=== PATIENT | female | born 1995 | race Caucasian/White ===

== ENCOUNTER 2017-04-04 08:40 | Inpatient (IN) | payer BC, OTHER ==
[2017-04-04] VITALS (103 sets, daily range): BP systolic 105–150; BP diastolic 53–135; PULSE 57–97; RESP 12–20; TEMP 97.9–98.5
[~2017-04-04 08:40] MED LIST: PREN1CHW7 PO
[2017-04-04] MEDS ORDERED: LACTATED RINGER'S 1000 ML INJ 1,000 ML IV PRN (09:19)
[2017-04-04] MEDS ORDERED: OXYTOCIN 30 UNITS-500ML PREMIX 500 ML IV ONE (09:30)
[2017-04-04] MEDS ORDERED: SODIUM CHLORID 0.9% 500 ML INJ 500 ML IV PRN (09:30)
[2017-04-04] MEDS ORDERED: MINERAL OIL 10 ML VIAL TOPICAL PRN (09:30)
[2017-04-04] MEDS ORDERED: LIDOCAINE HCL 1% 50 ML VIAL I-DERMAL PRN (09:30)
[2017-04-04] MEDS ORDERED: CITRIC ACID-SODIUM CITRATE LIQ 30 ML UDC PO SCH (09:30)
[2017-04-04] MEDS ORDERED: ONDANSETRON HCL 4 MG/2 ML VIAL IV PUSH PRN (09:30)
[2017-04-04] MEDS ORDERED: LIDOCAINE HCL 1% 50 ML VIAL INFIL PRN (09:30)
[2017-04-04] MEDS ORDERED: SODIUM CHLOR 0.9% 1000 ML INJ 1,000 ML IV PRN (09:39)
--- NOTE | 2017-04-04 09:47 | PD ---
HPI Chief Complaint painful contractions Travel History International Travel<30 Days: No Contact w/Intl Traveler<30Days: No Known Affected Area: No History of Present Illness HPI Patient is a 21 y/o @40 wks who presents for painful contractions starting this AM. Denies significant fluid leakage or vaginal bleeding. Endorses movement. [facility] Last appointment on Sunday, she was 2 cm dilated and 90% effaced. No complications or abnormalities in course. Is GBS neg, no STD hx. History Past Medical History Medical History: Denies Significant Hx Past Surgical History Surgical History: No Previous Surgery Family History Family History: Negative Social History Alcohol Use: No Tobacco Use: No Substance Abuse: No Allergies-Medications (Allergen,Severity, Reaction): Coded Allergies: Sulfa (Sulfonamide Antibiotics) (Unverified Allergy, Mild, hives, 04/02/17) penicillin G (Unverified Allergy, Mild, hives, 04/02/17) Home Meds Active Scripts Vit W/ Ferric Phospha (Vitafol Gummies 3.33-0.333-34.8 mg) 1 Chw Chw, 3 TAB PO DAILY, #90 BOTTLE 11 Refills Prov:Alina Fernandez [facility] 09/04/16 Vit W/ Fe Polysacch C (Vitafol Ultra 29-0.6-0.4-200 mg) 1 Cap Cap Prov:Edilma Gutierres CNM [facility] 09/04/16 Physical Exam Narrative GENERAL: Well-nourished, well-developed patient. SKIN: Warm and dry. HEAD: Normocephalic and atraumatic. EYES: No scleral icterus. No injection or drainage. ENT: No nasal drainage noted. Mucous membranes pink. Airway patent. NECK: Supple, trachea midline. No JVD. CARDIOVASCULAR: Regular rate and rhythm without murmurs, gallops, or rubs. RESPIRATORY: Breath sounds equal bilaterally. No accessory muscle use. BREASTS: Bilateral exam showed no masses , no retractions, no nipple discharge. ABDOMEN/GI: Abdomen soft, non-tender, bowel sounds present, no rebound, no guarding Gravid to 40 weeks size GENITOURINARY: External Genitalia: intact and normal in appearance Cervix: midline Dilatation: 3 Effacement: 90 Station: 0 Membranes: [intact] Uterine Contractions: yes, 2-3 min apart FHT's: Category: 1 Baseline: 115 Reactive: yes Variability: yes Decels: none EXTREMITIES: No cyanosis or edema. NEUROLOGICAL: Awake and alert. Motor and sensory grossly within normal limits. Data Data Orders Orders Admit To Inpatient (04/04/17 ) Code Status (04/04/17 09:19) Vital Signs (Adult) .Per protocol (04/04/17:19) Activity Oob Ad Lexy (04/04/17:19) Heart (04/04/17:19) Amnioinfusion (04/04/17:19) Urinary Catheter Management .ONCE (04/04/17:19) Diet Liquid (04/04/17 Breakfast) Lactated Ringer's 1000 Ml Inj (Lr 1000 M (04/04/17 09:19) Lactated Ringer's 1000 Ml Inj (Lr 1000 M (04/04/17 09:19) Sodium Chlorid 0.9% 500 Ml Inj (Ns 500 M (04/04/17 09:30) Sodium Chlor 0.9% 1000 Ml Inj (Ns 1000 M (04/04/17 09:39) Lidocaine 1% Inj (50 Ml) (Xylocaine 1% I (04/04/17 09:30) Citric Acid-Sodium Citrate Liq (Bicitra (04/04/17 09:30) Ondansetron Inj (Zofran Inj) (04/04/17 09:30) Fentanyl Inj (Fentanyl Inj) (04/04/17 09:30) Fentanyl Inj (Fentanyl Inj) (04/04/17 09:30) Complete Blood Count With Diff (04/04/17:19) Hold Clot (04/04/17:19) Abo/Rh Blood Type (04/04/17:19) Urinalysis - C+S If Indicated (04/04/17:19) Type And Screen (04/04/17:19) Resp Oxygen Non Rebreathe Mask (04/04/17 ) ^ Epidural / Intrathecal Infus (04/04/17:19) Oxytocin 30 Units-500ml Premix (Pitocin (04/04/17 09:30) Lidocaine 1% Inj (50 Ml) (Xylocaine 1% I (04/04/17 09:30) Light Mineral Oil (Muri-Lube Oil) (04/04/17 09:30) Inpatient Certification (04/04/17 ) Ob (2e) Additional Admit Info (04/04/17 09:23) MDM Interpretation(s) @40 weeks who is GBS - admitted for labor w/regular, frequent contractions. Category 1 tracing reassuring, dilated at 3 cm, 90 % effaced. - con't monitor - plan to recheck q 2-[address] Myers Diagnosis Diagnosis: Primary Impression: Additional Impression: Normal labor Brittany Kahn MD R1 Apr 04, 2017 09:47
--- NOTE | 2017-04-04 09:50 | HHI.HP ---
HPI Chief Complaint Painful contractions Travel History International Travel<30 Days: No Contact w/Intl Traveler<30Days: No Known Affected Area: No History of Present Illness HPI Patient is a 21 y/o @40 wks who presents for painful contractions starting this AM. Denies significant fluid leakage or vaginal bleeding. Endorses movement. [facility] with [facility]. Last appointment on Sunday, she was 2 cm dilated and 90% effaced. No complications or abnormalities in course. Is GBS neg, no STD hx. History Past Medical History Medical History: Denies Significant Hx Past Surgical History Surgical History: No Previous Surgery Family History Family History: Negative Social History Alcohol Use: No Tobacco Use: No Substance Abuse: No Allergies-Medications (Allergen,Severity, Reaction): Coded Allergies: Sulfa (Sulfonamide Antibiotics) (Unverified Allergy, Mild, hives, 04/02/17) penicillin G (Unverified Allergy, Mild, hives, 04/02/17) Home Meds Active Scripts Vit W/ Ferric Phospha (Vitafol Gummies 3.33-0.333-34.8 mg) 1 Chw Chw, 3 TAB PO DAILY, #90 BOTTLE 11 Refills Prov:Alina Fernandez [facility] 09/04/16 Vit W/ Fe Polysacch C (Vitafol Ultra 29-0.6-0.4-200 mg) 1 Cap Cap Prov:Edilma Gutierres CNM [facility] 09/04/16 Physical Exam Narrative GENERAL: Well-nourished, well-developed patient. SKIN: Warm and dry. HEAD: Normocephalic and atraumatic. EYES: No scleral icterus. No injection or drainage. ENT: No nasal drainage noted. Mucous membranes pink. Airway patent. NECK: Supple, trachea midline. No JVD. CARDIOVASCULAR: Regular rate and rhythm without murmurs, gallops, or rubs. RESPIRATORY: Breath sounds equal bilaterally. No accessory muscle use. BREASTS: Bilateral exam showed no masses , no retractions, no nipple discharge. ABDOMEN/GI: Abdomen soft, non-tender, bowel sounds present, no rebound, no guarding Gravid to 40 weeks size GENITOURINARY: External Genitalia: intact and normal in appearance Cervix: midline Dilatation: 3 Effacement: 90 Station: 0 Membranes: [intact] Uterine Contractions: yes, 2-3 min apart FHT's: Category: 1 Baseline: 115 Reactive: yes Variability: yes Decels: none EXTREMITIES: No cyanosis or edema. NEUROLOGICAL: Awake and alert. Motor and sensory grossly within normal limits. Caprini VTE Risk Assessment Caprini VTE Risk Assessment: No/Low Risk (score <= 1) Caprini Risk Assessment Model Point Value = 1 Point Value = 2 Point Value = 3 Point Value = 5 Age 41-60 Minor surgery BMI > 25 kg/m2 Swollen legs Varicose veins or History of unexplained or recurrent spontaneous Oral contraceptives or hormone replacement Sepsis (< 1 month) Serious lung disease, including pneumonia (< 1 month) Abnormal pulmonary function Acute myocardial infarction Congestive heart failure (< 1 month) History of inflammatory bowel disease Medical patient at bed rest Age 61-74 Arthroscopic surgery Major open surgery (> 45 min) Laparoscopic surgery (> 45 min) Malignancy Confined to bed (> 72 hours) Immobilizing plaster cast Central venous access Age >= 75 History of VTE Family history of VTE Factor V Leiden Prothrombin 25430P Lupus anticoagulant Anticardiolipin antibodies Elevated serum homocysteine Heparin-induced thrombocytopenia Other congenital or acquired thrombophilia Stroke (< 1 month) Elective arthroplasty Hip, pelvis, or leg fracture Acute spinal cord injury (< 1 month) Prophylaxis Regimen Total Risk Factor Score Risk Level Prophylaxis Regimen 0-1 Low Early ambulation 2 Moderate Order ONE of the following: *Sequential Compression Device (SCD) *Heparin 5000 units SQ BID 3-4 Higher Order ONE of the following medications: *Heparin 5000 units SQ TID *Enoxaparin/Lovenox 40 mg SQ daily (WT < 150 kg, CrCl > 30 mL/min) *Enoxaparin/Lovenox 30 mg SQ daily (WT < 150 kg, CrCl > 10-29 mL/min) *Enoxaparin/Lovenox 30 mg SQ BID (WT < 150 kg, CrCl > 30 mL/min) AND/OR *Sequential Compression Device (SCD) 5 or more Highest Order ONE of the following medications: *Heparin 5000 units SQ TID (Preferred with Epidurals) *Enoxaparin/Lovenox 40 mg SQ daily (WT < 150 kg, CrCl > 30 mL/min) *Enoxaparin/Lovenox 30 mg SQ daily (WT < 150 kg, CrCl > 10-29 mL/min) *Enoxaparin/Lovenox 30 mg SQ BID (WT < 150 kg, CrCl > 30 mL/min) AND *Sequential Compression Device (SCD) Data Data Vital Signs Reviewed: Yes Orders Orders Admit To Inpatient (04/04/17 ) Code Status (04/04/17 09:19) Vital Signs (Adult) .Per protocol (04/04/17 09:19) Activity Oob Ad Lexy (04/04/17:19) Heart (04/04/17:19) Amnioinfusion (04/04/17:19) Urinary Catheter Management .ONCE (04/04/17:19) Diet Liquid (04/04/17 Breakfast) Lactated Ringer's 1000 Ml Inj (Lr 1000 M (04/04/17 09:19) Lactated Ringer's 1000 Ml Inj (Lr 1000 M (04/04/17 09:19) Sodium Chlorid 0.9% 500 Ml Inj (Ns 500 M (04/04/17 09:30) Sodium Chlor 0.9% 1000 Ml Inj (Ns 1000 M (04/04/17 09:39) Lidocaine 1% Inj (50 Ml) (Xylocaine 1% I (04/04/17 09:30) Citric Acid-Sodium Citrate Liq (Bicitra (04/04/17 09:30) Ondansetron Inj (Zofran Inj) (04/04/17 09:30) Fentanyl Inj (Fentanyl Inj) (04/04/17 09:30) Fentanyl Inj (Fentanyl Inj) (04/04/17 09:30) Complete Blood Count With Diff (04/04/17:19) Hold Clot (04/04/17:19) Abo/Rh Blood Type (04/04/17 09:19) Urinalysis - C+S If Indicated (04/04/17 09:19) Type And Screen (04/04/17 09:19) Resp Oxygen Non Rebreathe Mask (04/04/17 ) ^ Epidural / Intrathecal Infus (04/04/17:19) Oxytocin 30 Units-500ml Premix (Pitocin (04/04/17 09:30) Lidocaine 1% Inj (50 Ml) (Xylocaine 1% I (04/04/17 09:30) Light Mineral Oil (Muri-Lube Oil) (04/04/17 09:30) Inpatient Certification (04/04/17 ) Ob (2e) Additional Admit Info (04/04/17 09:23) Group B Strep: Negative Assessment/Plan Assessment and Plan @40 weeks who is GBS - admitted for labor w/regular, frequent contractions. Category 1 tracing reassuring, dilated at 3 cm, 90 % effaced. - con't monitor - plan to recheck q 2-[address] Louis Kahn,Brittany Dietz MD R1 Apr 04, 2017 09:50
[2017-04-04] MEDS: LACTATED RINGER'S 1000 ML INJ 1,000 ML IV SCH ×4 (10:23→19:24)
[2017-04-04 10:25] LABS: AUTOMATED NEUTROPHIL # 9.7 TH/MM3 (1.8-7.7); BASOPHIL % 0.2 % (0.0-2.0); EOSINOPHIL % 0.2 % (0.0-4.0); HEMATOCRIT 36.2 % (35.0-46.0); HEMO FLAGS DIFF FINAL; LYMPH % 15.5 % (9.0-44.0); LYMPHOCYTE # 1.9 TH/MM3 (1.0-4.8); MEAN CELL VOLUME 96.2 FL (80.0-100.0); MEAN CORPUSCULAR HEMOGLOBIN 32.9 PG (27.0-34.0); MEAN CORPUSCULAR HGB CONC 34.2 % (32.0-36.0); MONO % 6.5 % (0.0-8.0); NEUT % 77.6 % (16.0-70.0); PLATELET COUNT 248 TH/MM3 (150-450); RED BLOOD COUNT 3.77 MIL/MM3 (4.00-5.30); RED CELL DISTRIBUTION WIDTH 13.1 % (11.6-17.2); WHITE BLOOD COUNT 12.5 TH/MM3 (4.0-11.0)
[2017-04-04 10:36] LABS: BACTERIA, URINE RARE /hpf; BLOOD, URINE NEG (NEG); GLUCOSE,URINE NEG (NEG); KETONE, URINE NEG (NEG); NITRITE,URINE NEG (NEG); SQUAMOUS EPITHELIAL CELL URINE 7 /hpf (0-5); URINE COLOR LIGHT-YELLOW (YELLW/STRAW)
[2017-04-04 10:37] LABS: COMMENT (UR) CULTURE INDICATED; CULTURE IF INDICATED CULTURE INDICATED
[2017-04-04] MEDS ORDERED: fentaNYL 2MCG-BUPIV 0.125% INJ 100 ML ONE (12:47)
[2017-04-04] MEDS ORDERED: ePHEDrine/NS 25 MG/5 ML SYR ONE (13:27)
[2017-04-04] MEDS ORDERED: fentaNYL 2MCG-BUPIV 0.125% 100 ML EPIDURAL SCH (15:30)
[2017-04-04] MEDS ORDERED: DO NOT ADMINISTER ANTICOAGULANTS PRN (15:30)
[2017-04-04] MEDS ORDERED: NO SYSTEM NARCOTICS PRN (15:30)
[2017-04-04] MEDS ORDERED: ePHEDrine/NS 25 MG/5 ML SYR IV PUSH PRN (15:30)
[2017-04-04] MEDS ORDERED: OXYTOCIN 30 UNITS-500ML PREMIX 500 ML ONE (19:19)
[2017-04-04 21:00] LABS: BLOOD GAS BASE EXCESS -3.9 mmol/L (-2-2); BLOOD GAS O2 HGB SATURATION 35 % (90-100); CORD BLOOD GAS HCO3 22 mmol/L (21-29); CORD BLOOD GAS PCO2 50 mmHG (34-78); CORD BLOOD GAS PH 7.26 (7.14-7.42); CORD BLOOD GAS PO2 21 mmHG (3.0-40.0); DRAW SITE CORD BLOOD; STAT YES
--- NOTE | 2017-04-04 21:01 | PD.OB.DELI ---
Weeks gestation: 40 Gest age assessed date: Apr 04, 2017 Gest age assessed time: 20:00 Pt started active labor?: Yes Medical induction of labor?: No Artificial rupture of membrane: No Anesthesia: Epidural Episiotomy: None Vaginal Delivery: Normal Presentation: Occiput anterior Nuchal Cord: x1 Delayed cord clamping (45 sec): No : Male Delivery date: Apr 04, 2017 Delivery time: 20:39 One Minute : 7 Five Minute : 9 Weight: 3600 grams Placenta: Spontaneous delivery, Intact Laceration: No lacerations Estimated blood loss: < 250 cc Additional Information 21 y/o now delivered @ 40 wks gestation via over an intact perineum. Apgars 7/9 at 1/5 minutes respectively. Placenta delivered spontaneously and intact. weight 3600 grams. No lacerations. EBL < 250 cc. (Ananda Carty MD R2) Additional Information Presented in early active labor. FHR reassuring with low baseline. Uncomplicated . Placenta spontaneous and intact, grossly normal. (Katie Mendoza MD) Ananda Carty MD R2 Apr 04, 2017 9:01 pm Katie Mendoza MD Apr 04, 2017 9:20 pm
[2017-04-04] MEDS ORDERED: SODIUM CHLORIDE 0.9% FLUSH 10 ML FLUSH IV FLUSH PRN (21:15)
[2017-04-04] MEDS ORDERED: OXYTOCIN 30 UNITS-500ML PREMIX 500 ML IV SCH (21:15)
[2017-04-04] MEDS ORDERED: ACETAMINOPHEN 325 MG TAB PO PRN (21:15)
[2017-04-04] MEDS ORDERED: DOCUSATE SODIUM 50 MG/SENNA 8.6 MG TAB PO PRN (21:15)
[2017-04-04] MEDS ORDERED: ALUMINUM/MAGNESIUM/SIMETH 30 ML CUP PO PRN (21:15)
[2017-04-04] MEDS ORDERED: BENZOCAINE 20% TOPICAL SPRAY 60 ML CAN TOPICAL PRN (21:15)
[2017-04-04] MEDS ORDERED: ONDANSETRON ODT 4 MG TAB PO PRN (21:15)
[2017-04-04] MEDS ORDERED: WITCH HAZEL 50%/GLYCERIN 12.5% 40 PAD JAR TOPICAL PRN (21:15)
[2017-04-04] MEDS ORDERED: oxyCODONE/ACETAMINOPHEN 5 MG/325 MG TAB PO PRN ×2 (21:15)
[2017-04-04] MEDS ORDERED: ZOLPIDEM TARTRATE 5 MG TAB PO PRN (21:15)
[2017-04-04] MEDS ORDERED: SODIUM CHLORIDE 0.9% FLUSH 10 ML FLUSH IV FLUSH SCH (21:15)
[2017-04-04] MEDS: IBUPROFEN 600 MG TAB PO PRN (21:20)
[2017-04-04] MEDS ORDERED: MEASLES, MUMPS, RUBELLA VACCINE 0.5 ML VIAL SQ ONE (22:00)
[2017-04-04] MEDS ORDERED: DIPHTH/TETANUS/ACEL PERTUSSIS (BOOSTER) 0.5 ML VIAL/PFS IM ONE (22:00)
[2017-04-05 00:30] VITALS: BP 117/55; PULSE 64; RESP 18; TEMP 97.9
--- NOTE | 2017-04-05 08:55 | HHI.OB ---
Subjective Post Day: 1 Remarks minimal cramping. well. lochia minimal. ambulating and voiding ok. (Katie Mendoza MD) Objective Vitals/I&O Vital Signs Date Time Temp Pulse Resp B/P (MAP) Pulse Ox O2 Delivery O2 Flow Rate FiO2 04/05/17 00:30 97.9 64 18 117/55 (75) 04/04/17 23:15 18 04/04/17 22:46 70 129/77 (94) 04/04/17 22:45 18 04/04/17 22:30 63 113/80 (91) 04/04/17 22:15 66 124/64 (84) 04/04/17 22:15 18 04/04/17 22:01 66 127/73 (91) 04/04/17 21:46 67 118/71 (87) 04/04/17 21:45 18 04/04/17 21:31 97 120/81 (94) 04/04/17 21:16 73 126/74 (91) 04/04/17 21:15 18 04/04/17 21:00 85 147/117 (127) 04/04/17 20:45 98.0 04/04/17 20:45 72 139/71 (93) 04/04/17 20:45 18 04/04/17 20:30 18 04/04/17 20:30 77 140/80 (100) 04/04/17 20:16 69 119/86 (97) 04/04/17 20:00 150/135 (140) 04/04/17 19:50 75 04/04/17 19:40 72 04/04/17 19:35 67 04/04/17 19:30 67 142/67 (92) 04/04/17 19:30 18 04/04/17 19:25 84 04/04/17 19:20 77 04/04/17 19:16 72 130/62 (84) 04/04/17 19:15 66 04/04/17 19:10 78 04/04/17 19:08 69 134/85 (101) 04/04/17 19:05 83 04/04/17 19:00 18 04/04/17 19:00 87 149/73 (98) 04/04/17 19:00 78 04/04/17 18:55 70 10/4/17 18:50 67 04/04/17 18:46 70 126/71 (89) 04/04/17 18:45 64 04/04/17 18:40 66 04/04/17 18:35 68 04/04/17 18:30 66 04/04/17 18:30 65 123/73 (90) 04/04/17 18:25 65 04/04/17 18:20 71 04/04/17 18:15 69 105/59 (74) 04/04/17 18:15 67 04/04/17 18:10 69 04/04/17 18:05 70 04/04/17 18:00 74 136/75 (95) 04/04/17 18:00 67 04/04/17 17:50 74 04/04/17 17:46 18 04/04/17 17:45 72 136/74 (94) 04/04/17 17:45 73 04/04/17 17:40 69 04/04/17 17:35 75 04/04/17 17:30 83 04/04/17 17:30 75 127/81 (96) 04/04/17 17:25 74 04/04/17 17:20 72 04/04/17 17:15 71 04/04/17 17:15 75 121/61 (81) 04/04/17 17:10 74 04/04/17 17:05 78 04/04/17 17:00 72 117/58 (77) 04/04/17 17:00 72 04/04/17 16:55 74 04/04/17 16:50 70 04/04/17 16:45 98.5 18 04/04/17 16:45 70 04/04/17 16:45 74 121/57 (78) 04/04/17 16:40 67 04/04/17 16:35 70 04/04/17 16:30 70 04/04/17 16:10 63 04/04/17 16:05 64 04/04/17 16:00 68 04/04/17 15:50 64 04/04/17 15:45 63 04/04/17 15:40 64 04/04/17 15:36 62 18 119/61 (80) 04/04/17 15:35 67 04/04/17 15:30 69 04/04/17 15:10 65 04/04/17 15:00 65 04/04/17 14:55 69 04/04/17 14:50 68 04/04/17 14:45 72 04/04/17 14:40 68 04/04/17 14:35 67 04/04/17 14:32 18 04/04/17 14:32 98.2 04/04/17 14:30 65 04/04/17 14:30 66 120/59 (79) 04/04/17 14:25 70 04/04/17 14:20 67 04/04/17 14:15 70 115/60 (78) 04/04/17 14:15 67 04/04/17 13:55 66 111/53 (72) 04/04/17 13:55 66 04/04/17 13:50 70 04/04/17 13:50 67 118/57 (77) 04/04/17 13:45 66 04/04/17 13:45 72 116/62 (80) 04/04/17 13:40 70 04/04/17 13:40 70 120/60 (80) 04/04/17 13:38 72 125/57 (79) 04/04/17 13:36 20 04/04/17 13:36 78 126/64 (84) 04/04/17 13:35 79 04/04/17 13:30 73 131/66 (87) 04/04/17 13:30 71 04/04/17 13:26 68 124/75 (91) 04/04/17 13:25 79 04/04/17 13:22 71 130/79 (96) 04/04/17 13:20 71 04/04/17 13:15 73 04/04/17 13:11 70 131/83 (99) 04/04/17 13:10 71 04/04/17 13:05 65 04/04/17 13:00 67 04/04/17 12:15 59 132/79 (96) 04/04/17 12:00 16 04/04/17 10:43 12 04/04/17 10:43 57 135/82 (99) 04/04/17 10:36 97.9 04/04/17 09:58 12 04/04/17 09:57 58 130/78 (95) Objective Remarks GENERAL: Well-nourished, well-developed patient. CARDIOVASCULAR: Regular rate and rhythm without murmurs, gallops, or rubs. RESPIRATORY: Breath sounds equal bilaterally. No accessory muscle use. ABDOMEN/GI: Abdomen soft, non-tender. Fundus: Firm, non-tender at umbilicus. GENITOURINARY: Light to moderate bleeding. EXTREMITIES: No cyanosis or edema, non-tender, without signs of DVT. Medications and IVs Current Medications Medications (Trade) Dose Ordered Sig/Deangelo Route Start Time Stop Time Status Last Admin (NS Flush) 2 ml BID IV FLUSH 04/04/17 21:15 (NS Flush) 2 ml UNSCH PRN IV FLUSH 04/04/17 21:15 (Tylenol) 650 mg Q4H PRN PO 04/04/17 21:15 (Motrin) 600 mg Q6H PRN PO 04/04/17 21:15 04/04/17 21:20 (Percocet 5-325 Mg) 1 tab Q4H PRN PO 04/04/17 21:15 (Percocet 5-325 Mg) 2 tab Q4H PRN PO 04/04/17 21:15 (Americaine 20% Top Spr) 1 spray Q4H PRN TOPICAL 04/04/17 21:15 (Tucks Pads) 1 applic QID PRN TOPICAL 04/04/17 21:15 (Teresa-Colace) 2 tab Q12H PRN PO 04/04/17 21:15 (Ambien) 5 mg HS PRN PO 04/04/17 21:15 (Mag-Al Plus Susp Liq) 15 ml Q8H PRN PO 04/04/17 21:15 (Zofran Odt) 4 mg Q6H PRN PO 04/04/17 21:15 (Brittany Kahn MD R1) Assessment/Plan Assessment and Plan 21y/o female who is PPD 1 s/p vaginal -Continue routine care. -Percocet and Motrin PRN pain. -Encouraged OOB. Advised pelvic rest for 6 wks. -D/c tomorrow [facility] attending (Brittany Kahn MD R1) Attending Attestation PPD #1 s/p doing well continue PP care and observation anticipate d/c in AM and f/u with [facility] patient seen and examined. d/w Dr. Haley and Dr. Kahn (Katie Mendoza MD) Brittany Kahn MD R1 Apr 05, 2017 08:55 Katie Mendoza MD Apr 05, 2017 09:35
[2017-04-05 09:00] VITALS: BP 102/68; PULSE 78; RESP 16; TEMP 99
[2017-04-05] MEDS: IBUPROFEN 600 MG TAB PO PRN (15:31)
[2017-04-05 22:20] VITALS: BP 117/64; PULSE 67; RESP 18; TEMP 97.9
[2017-04-06 08:00] VITALS: BP 125/62; PULSE 65; RESP 16; TEMP 98
[2017-04-06] MEDS ORDERED: SENN1TAB PO (08:56)
[2017-04-06] MEDS ORDERED: IBUP-232 PO (08:56)
--- NOTE | 2017-04-06 08:57 | HHI.DCPOC ---
Discharge Care Plan Diagnosis: (1) Report Symptoms to Your Doctor -Temperature above 100.5 degrees -Redness, of incision or excessive or foul smelling drainage -Unusual pain or calf pain -Increased vaginal bleeding -Painful or difficulty urinating -Feelings of extreme sadness or anxiety after 2 weeks Goals to Promote Your Health * To prevent worsening of your condition and complications * To maintain your health at the optimal level Directions to Meet Your Goals Take your medications as prescribed Follow your dietary instruction Follow activity as directed Ensure plenty of rest for recovery Drink fluids for hydration Keep your appointments as scheduled Take your immunizations and boosters as scheduled If your symptoms worsen call your PCP, if no PCP go to Urgent Care Center or Emergency Room Smoking is Dangerous to Your Health. Avoid second hand smoke Call the 24-hour crisis hotline for domestic abuse at Brittany Kahn MD R1 Apr 06, 2017 08:56
--- NOTE | 2017-04-06 09:37 | HHI.OB ---
Subjective Post Day: 2 Remarks day #2. AFVSS overnight. Pain minimal. Decreased lochia. Denies dysuria. No breast tenderness. She is feeding the baby via breast and formula. Appetite good. No nausea or vomiting. Passing flatus. No bowel movement. Ambulating well. Denies calf pain, shortness of breath, or cough. Otherwise, she is doing well this morning and has no other complaints. Objective Vitals/I&O Vital Signs Date Time Temp Pulse Resp B/P (MAP) Pulse Ox O2 Delivery O2 Flow Rate FiO2 04/06/17 08:00 98.0 16 04/06/17 08:00 65 125/62 (83) 04/05/17 22:20 97.9 67 18 117/64 (81) Objective Remarks GENERAL: Well-nourished, well-developed patient. CARDIOVASCULAR: Regular rate and rhythm without murmurs, gallops, or rubs. RESPIRATORY: Breath sounds equal bilaterally. No accessory muscle use. ABDOMEN/GI: Abdomen soft, non-tender. Fundus: Firm, non-tender at umbilicus. GENITOURINARY: Light to moderate bleeding. EXTREMITIES: No cyanosis or edema, non-tender, without signs of DVT. Medications and IVs Current Medications Medications (Trade) Dose Ordered Sig/Deangelo Route Start Time Stop Time Status Last Admin (NS Flush) 2 ml BID IV FLUSH 04/04/17 21:15 (NS Flush) 2 ml UNSCH PRN IV FLUSH 04/04/17 21:15 (Tylenol) 650 mg Q4H PRN PO 04/04/17 21:15 (Motrin) 600 mg Q6H PRN PO 04/04/17 21:15 04/05/17 15:31 (Percocet 5-325 Mg) 1 tab Q4H PRN PO 04/04/17 21:15 (Percocet 5-325 Mg) 2 tab Q4H PRN PO 04/04/17 21:15 (Americaine 20% Top Spr) 1 spray Q4H PRN TOPICAL 04/04/17 21:15 (Tucks Pads) 1 applic QID PRN TOPICAL 04/04/17 21:15 (Teresa-Colace) 2 tab Q12H PRN PO 04/04/17 21:15 (Ambien) 5 mg HS PRN PO 04/04/17 21:15 (Mag-Al Plus Susp Liq) 15 ml Q8H PRN PO 04/04/17 21:15 (Zofran Odt) 4 mg Q6H PRN PO 04/04/17 21:15 Assessment/Plan Assessment and Plan 21y/o female who is PPD to s/p vaginal -Continue routine care. -Percocet and Motrin PRN pain. -Encouraged OOB. Advised pelvic rest for 6 wks. -D/c today [facility] OB attending Brittany Kahn MD R1 Apr 06, 2017 09:37
[2017-04-06] MEDS: IBUPROFEN 600 MG TAB PO PRN (10:25)
[2017-04-19] MEDS ORDERED: CLIN1CAP6 PO (16:23)
== END 2017-04-06 15:30 | disposition home or self-care (01) | DRG 775 ==
LOC: HOBED 08:40 → H2EB 09:30 → H1EA 23:33
PROVIDERS: ADMIT Obstetrics & Gynecology Maternal & Fetal Medicine; ATTEND Obstetrics & Gynecology Maternal & Fetal Medicine
PROC: 10E0XZZ Delivery of Products of Conception, External Approach (ICD-10-PCS; principal; 2017-04-04)
DX: O69.81X0 Labor and delivery complicated by cord around neck, without compression, not applicable or unspecified (principal); Z37.0 Single live birth; Z3A.40 40 weeks gestation of pregnancy
CPT/HCPCS: 59025; 81001; 82805; 85025; 86850; 86900; 86901; 87086; 90715; J2590; J3010; J7120